=== PATIENT | female | born 1950 | race Caucasian/White ===

== ENCOUNTER 2018-04-10 10:23 | Day surgery (SDC) | payer OTHER, MEDICARE ==
[~2018-04-10] VITALS: Ht 165.1 cm; Wt 86.2 kg
[~2018-04-10 10:23] MED LIST: CEFAZOLIN 1 GM IVPB PREMIX 50 ML IV ONE
[2018-04-10] MEDS ORDERED: ONDANSETRON HCL 4 MG/2 ML VIAL IVP ONE (14:05)
[2018-04-10] MEDS ORDERED: fentaNYL CITRATE/PF 100 MCG/2 ML AMP IVP ONE (14:05)
[2018-04-10] MEDS ORDERED: BUPIVACAINE /PF 0.25% 30 ML VIAL INJ ONE (14:05)
[2018-04-10] MEDS ORDERED: ROCURONIUM BROMIDE 10 MG/ML (ZEMURON) IV ONE (14:05)
[2018-04-10] MEDS ORDERED: PROPOFOL 200MG/ 20ML VIAL (DIPRIVAN) IV ONE (14:05)
[2018-04-10] MEDS ORDERED: NS IRRIG SOLN 1000 ML IR ONE (14:05)
[2018-04-10] MEDS ORDERED: LR 1,000 ML IV.SOLN IV ONE (14:05)
[2018-04-10] MEDS ORDERED: SEVOFLURANE 15 MIN GAS INH ONE (14:05)
[2018-04-10] MEDS ORDERED: MIDAZOLAM HCL 5 MG/5 ML VIAL IVP ONE (14:05)
[2018-04-10] MEDS ORDERED: LR 1,000 ML IV SCH (14:40)
[2018-04-10] MEDS ORDERED: MORPHINE 4 MG/ML INJ. SYRINGE IVP PRN ×2 (14:45)
[2018-04-10] MEDS ORDERED: METOCLOPRAMIDE HCL 10 MG/2 ML VIAL IVP PRN (14:45)
[2018-04-10] MEDS ORDERED: D5/0.45 NS 1,000 ML IV SCH (15:29)
[2018-04-10] MEDS ORDERED: HYDROmorphone 1 MG INJ. 1 MG/ML AMPUL IVP PRN (15:30)
[2018-04-10] MEDS ORDERED: HYDROcodone/ACETAMIN 5-325 MG TAB (NORCO/ VICODIN) PO PRN ×2 (15:30)
[2018-04-10] MEDS: MORPHINE 4 MG/ML INJ. SYRINGE IVP PRN ×2 (16:11→16:29)
[2018-04-10] MEDS ORDERED: MORPHINE 4 MG/ML INJ. SYRINGE ONE (16:16)
[2018-04-10] MEDS ORDERED: HYDROcodone/ACETAMIN 5-325 MG TAB (NORCO/ VICODIN) ONE (17:14)
[2018-04-10 17:19] VITALS: BP_SYST 140
== END 2018-04-10 18:30 | disposition home or self-care (01) ==
LOC: SDS 10:23 → SMU 10:24 → SDS 18:30
PROVIDERS: ATTEND Colon & Rectal Surgery
DX: C50.911 Malignant neoplasm of unspecified site of right female breast (principal); K21.9 Gastro-esophageal reflux disease without esophagitis; F41.9 Anxiety disorder, unspecified; E78.5 Hyperlipidemia, unspecified; E66.9 Obesity, unspecified; Z98.890 Other specified postprocedural states; Z90.710 Acquired absence of both cervix and uterus; Z80.3 Family history of malignant neoplasm of breast; Z68.32 Body mass index [BMI] 32.0-32.9, adult; Z82.49 Family history of ischemic heart disease and other diseases of the circulatory system; Z79.899 Other long term (current) drug therapy
CPT/HCPCS: 19081; 19301; 38525; 78195; 88307; 88329; 88333; 88342; A9541; J0690; J2250; J2270; J2405; J2704; J3010; J3490; J7120; 76098-TC; 88305